=== PATIENT | female | born 1990 ===

== ENCOUNTER 2019-05-31 21:10 | Emergency (ER) | payer OTHER ==
[2019-05-31] MEDS ORDERED: Balanced Salt Solution Ophth Irrig 30 ML Bottle EYELF ONE (21:34)
--- NOTE | 2019-05-31 21:34 | EDM.PDOC ---
ED HPI GENERAL MEDICAL PROBLEM - General Chief Complaint: Eye Problems Stated Complaint: eye pain/ welders burn Time Seen by Provider: 05/31/19 21:25 Source of Information: Reports: Patient, Old Records (No [facility] records available) History Limitations: Reports: No Limitations - History of Present Illness INITIAL COMMENTS - FREE TEXT/NARRATIVE: The patient was brought to the emergency room via transport vehicle from [facility] for evaluation of probable bilateral ocular katz, which occurred on 05/24/19. She has not been evaluated by a medical provider to this point for these symptoms and has not taken any medications, eyedrops, etc. to this point. Patient initially felt better after about 2 days and has been able to continue working, however during the last couple of days her symptoms have progressed. She complains of bilateral blurred vision and 6/10 burning ocular pain. 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 She has not had similar injuries in the past. No recent history of abdominal pain, heartburn, nausea, diarrhea, melena, gross hematochezia, or any food intolerance, including fatty foods, etc.. The patient also denies any recent fever, cough, wheezing, dyspnea, etc.. The patient has not been wearing her contact lenses since 05/24 and denies any known exposure to infection. Onset: Gradual, Unknown/Unsure Onset Date: 05/24/19 Duration: Constant, Getting Worse Location: Reports: Other (As above). Denies: Head, Face, Neck, Chest, Abdomen, Radiates to Quality: Reports: Burning Severity: Moderate Improves with: Reports: None Worsens with: Reports: None Context: Reports: Other (As above). 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) Left Eye Pain Score (Numeric/FACES): 5 Right Eye Pain Score (Numeric/FACES): 6 - Related Data Allergies Allergy/AdvReac Type Severity Reaction Status Date / Time No Known Allergies Allergy Verified 05/31/19 21:12 Home Meds: Home Meds Polymyxin B/Trimethoprim [PolyTrim Ophth Soln] 2 drop EYEBOTH QID #1 bottle 06/07 [Rx] Past Medical History HEENT History: Reports: Impaired Vision, Other (See Below) Other HEENT History: The patient wears soft contact lenses and glasses Social & Family History - Tobacco Use Smoking Status *Q: Never Smoker Tobacco Use Within Last Twelve Months: No Used Tobacco, but Quit: No Smoking Cessation Information Provided To Patient: No Second Hand Smoke Exposure: No Second Hand Smoke Education Provided: No - Living Situation & Occupation Living situation: Reports: , with Family Occupation: Employed ([employer]) ED ROS GENERAL - Review of Systems Review Of Systems: Comprehensive ROS is negative, except as noted in HPI. ED EXAM GENERAL W FULL EYE - Physical Exam Exam: See Below Exam Limited By: No Limitations General Appearance: Alert, WD/WN, No Apparent Distress Eye Exam: Bilateral Eye: Conjunctival Injection (Moderate), EOMI, Normal Fundi, PERRL Visual Acuity (R) 20/: 15 (Although blurred) Visual Acuity (L) 20/: 15 (Although blurred) With Correction: Yes Eyelids: Bilateral: Normal Appearance, Lid Everted for Exam Conjunctiva & Sclera: Bilateral: Injected (Moderate) Cornea Exam: Bilateral: Normal Appearance, Examined with Flourescein Extraocular Movements: Bilateral: Intact Pupils: Normal Accommodation Pupillary Size: Bilateral: 6 mm Pupillary Reaction: Bilateral: Brisk Anterior Chamber: Bilateral: Normal Appearance Posterior Chamber: Bilateral: Normal Funduscopic Ears: Normal External Exam, Normal Canal, Hearing Grossly Normal, Normal TMs Nose: Normal Mucosa, No Blood, Clear Rhinorrhea (Mild bilateral) Throat/Mouth: Normal Inspection, Normal Lips, Normal Teeth, Normal Gums, Normal Oropharynx, Normal Voice, No Airway Compromise Head: Atraumatic, Normocephalic. No: Facial Swelling, Facial Tenderness, Sinus Tenderness Neck: Normal Inspection, Supple, Non-Tender, Full Range of Motion. No: Lymphadenopathy (L), Lymphadenopathy (R), Thyromegaly Respiratory/Chest: No Respiratory Distress, Lungs Clear, Normal Breath Sounds, No Accessory Muscle Use, Chest Non-Tender. No: Pleural Rub, Retractions Cardiovascular: Normal Peripheral Pulses, Regular Rate, Rhythm, No Edema, No Gallop, No JVD, No Murmur, No Rub. No: Gallop/S3, Gallop/S4, Friction Rub GI/Abdominal: Normal Bowel Sounds, Soft, Non-Tender, No Organomegaly, No Distention, No Abnormal Bruit, No Mass. No: Guarding (Female) Exam: Deferred Rectal (Female) Exam: Deferred Back Exam: Normal Inspection, Full Range of Motion. No: CVA Tenderness (L), CVA Tenderness (R), Muscle Spasm Extremities: Normal Inspection, Normal Range of Motion, Non-Tender, Normal Capillary Refill, No Pedal Edema Neurological: Alert, Oriented, CN II-XII Intact, Normal Cognition, Normal Gait, No Motor/Sensory Deficits Psychiatric: Normal Affect, Normal Mood Skin Exam: Warm, Dry, Intact, Normal Color, No Rash. No: Diaphoretic, Wound/ Incision Lymphatic: No Adenopathy ED EYE w/ Add Procedure - Eye Procedure Alcaine Drops Administered: Yes Eye Irrigated w/ Saline (ccs): 30 (In each eye) Course - Vital Signs Last Recorded V/S: Last Vital Signs Temp 36.8 C 05/31/19 21:17 Pulse 82 05/31/19 21:17 Resp 18 05/31/19 21:17 BP 129/78 05/31/19 21:17 Pulse Ox 98 05/31/19 21:17 Vital Signs - 24 hr 05/31/19 21:17 Temperature [ 36.8 C Temporal] Pulse, 82 Peripheral [ Right Pulse Oximetry] Respiratory 18 Rate Blood Pressure 129/78 [Right Upper Arm] O2 Sat by Pulse 98 Oximetry - Orders/Labs/Meds Orders: Active Orders 24 hr Category Date Time Status Obtain Past Medical Record [OM.PC] Routine Oth 05/31/19 21:34 Active Labs: None Meds: Medications Discontinued Medications Generic Name Dose Route Start Last Admin Trade Name Freq PRN Reason Stop Dose Admin Balanced Salt Solution 30 ml 05/31/19 21:34 05/31/19 21:40 Eye Stream Eye Rinse EYELF 05/31/19 21:35 30 ml ONETIME ONE Administration Balanced Salt Solution 30 ml 05/31/19 21:36 05/31/19 21:40 Eye Stream Eye Rinse EYERT 05/31/19 21:37 30 ml ONETIME ONE Administration Tetracaine HCl 1 ml 05/31/19 21:35 05/31/19 21:40 Tetracaine 0.5% Steri-Unit Juanita EYEBOTH 05/31/19 21:36 1 drop ASDIRECTED ONE Administration - Radiology Interpretation Free Text/Narrative:: None Departure - Departure Time of Disposition: 22:20 Disposition: Home, Self-Care 01 Condition: Good Clinical Impression: Conjunctivitis Qualifiers: Conjunctivitis type: acute Acute conjunctivitis type: unspecified Laterality: bilateral Qualified Code(s): H10.33 - Unspecified acute conjunctivitis, bilateral - Discharge Information *PRESCRIPTION DRUG MONITORING PROGRAM REVIEWED*: Not Applicable *COPY OF PRESCRIPTION DRUG MONITORING REPORT IN PATIENT RAGHU: Not Applicable Prescriptions: Polymyxin B/Trimethoprim [PolyTrim Ophth Soln] 2 drop EYEBOTH QID #1 bottle Instructions: Chemical Conjunctivitis, Adult, [id number] Referrals: PCP,Not In Area [Primary Care Provider] - Forms: ED Department Discharge Additional Instructions: 1. Follow up with your eye doctor in 3-4 days as needed, if no significant improvement in symptoms. Bring these discharge instructions with you to that visit. 2. Otherwise, Follow up with your regular provider in 10-14 days as needed, if symptoms persist. Bring these discharge instructions with you to that visit. 3. Polytrim eyedrops 2 drops in the affected eye 4 times a day with every 2 hours as needed for at least 5 days AND until 48 hours after complete resolution of symptoms as directed. You may use additional OTC artificial tears as needed as per label instructions. 4. Work excuse- See Form 5. Tylenol 650 mg by mouth every 4 hours and/or OTC ibuprofen 2-3 tabs by mouth every 6 hours with food as directed./needed. You may stagger these medications for 48-72 hours only, which essentially means that you are receiving a pain medication about every 2 hours. 6. Immediately after this visit verify that your cellular telephone's voicemail has been activated and is empty. Also verify that your home telephone 's answering machine is operating properly and has space to receive messages. Note that it is sometimes necessary for us to be able to contact you at a later date to discuss your medical care. 7. Please remember that we are ALWAYS here for you and want to answer any questions you may have. Feel free to call the hospital any time and we call you back JESSICA. 8. Do not wear your contact lenses or any eye makeup until you have been completely symptom-free for at least one week. 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 Fluroscein test was negative with no evidence of corneal clouding, abrasions, ulcerations, foreign body, etc.. Polytrim ophthalmic solution was prescribed with emergency room prescription given. No indication for TDAP at this time secondary to absence of corneal clouding, etc. [employer] work excuse and Workmen's Compensation forms were completed. Patient did have excessive amounts of eye makeup, including in the upper eyelashes, however no evidence of foreign body as above. 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 Qualifiers: Conjunctivitis type: acute Acute conjunctivitis type: unspecified Laterality: bilateral Qualified Code(s): H10.33 - Unspecified acute conjunctivitis, bilateral - Problem List Review Problem List Initiated/Reviewed/Updated: Yes - My Orders Last 24 Hours: My Active Orders 05/31/19 21:34 Obtain Past Medical Record [OM.PC] Routine - Assessment/Plan Last 24 Hours: My Active Orders 05/31/19 21:34 Obtain Past Medical Record [OM.PC] Routine Assessment:: As above Plan: As above. Extensive precautions were given to the patient, who is in agreement with the treatment plan. See Patient Instructions for further treatment and plan.
[2019-05-31] MEDS ORDERED: Tetracaine HCl/PF 0.5% 4 ML Bottle EYEBOTH ONE (21:35)
[2019-05-31] MEDS ORDERED: Balanced Salt Solution Ophth Irrig 30 ML Bottle EYERT ONE (21:36)
== END 2019-05-31 22:20 | disposition home or self-care (01) ==
LOC: LL.ED 21:10
DX: H10.33 Unspecified acute conjunctivitis, bilateral (principal)
CPT/HCPCS: 99283